=== PATIENT | male | born 1950 | race Caucasian/White ===

== ENCOUNTER 2017-12-09 06:56 | Inpatient (IN) | payer BC, OTHER ==
[2017-12-01 09:05] VITALS: BMI 39.0
--- NOTE | 2017-12-01 09:34 | PAT Medication Instructions ---
Service Date Dec 01, 2017. Current Home Medication List Aspirin (Aspirin Chewable), 81 MG PO QAM Guanvngbnpe-Hydjyxdmach-Hgg C- (Glucosamine Chondroitin), 1 CAP PO QAM Lisinopril (Zestril), 20 MG PO QAM Meloxicam (Mobic), 15 MG PO QAM Metoprolol Succ (Toprol Xl) (Toprol-Xl), 25 MG PO QAM Multiple Vitamins W/ Minerals (Multi For Him 50+), 1 TAB PO QAM Triamterene/Hctz (Dyazide 37.5MG/25MG), 1 TAB PO QAM Medication Instructions For Your Scheduled Surgery - Held per surgeon's instructions: Meloxicam (Mobic), 15 MG PO QAM - Hold the following medications as of 12/01/16: Zshpofkstrg-Abmdxblxedo-Tfa C- (Glucosamine Chondroitin), 1 CAP PO QAM - Hold the following medications the morning of surgery: Lisinopril (Zestril), 20 MG PO QAM Triamterene/Hctz (Dyazide 37.5MG/25MG), 1 TAB PO QAM Multiple Vitamins W/ Minerals (Multi For Him 50+), 1 TAB PO QAM - Take the following medications the morning of surgery with a sip of water OTHERWISE NOTHING TO EAT OR DRINK AFTER MIDNIGHT: Aspirin (Aspirin Chewable), 81 MG PO QAM Metoprolol Succ (Toprol Xl) (Toprol-Xl), 25 MG PO QAM If you have any questions please call us at [phone] or [phone] or [phone]
--- NOTE | 2017-12-01 10:07 | DIAGNOSTIC IMAGING REPORT ---
TWO VIEW CHEST CLINICAL HISTORY: Preoperative examination. FINDINGS: PA and lateral chest radiographs are obtained. No prior studies are available for comparison at the time of dictation. The heart is top normal for projection. The pulmonary vasculature is noncongested. Nonspecific interstitial thickening is noted. There is no airspace consolidation or pleural effusion. There is no pneumothorax. The skeletal structures appear osteopenic. Degenerative change is noted throughout the thoracic spine. IMPRESSION: No active disease in the chest. Electronically signed by: Sloan Oneill M.D. 12/01/2017 10:06 AM Dictated Date/Time: 12/01/2017 10:05 AM
[2017-12-01 10:14] LABS: BASO % 0.5 %; BASO ABS # 0.05 K/uL (0-0.2); EOS % 2.1 %; HEMATOCRIT 46.9 % (42-52); IG# 0.08 K/uL (0.00-0.02); LYMPH % 28.4 %; LYMPH ABS # 2.76 K/uL (1.2-3.4); MEAN CELL VOLUME 86.7 fL (80-100); MEAN CORPUSCULAR HEMOGLOBIN 29.6 pg (25-34); MEAN CORPUSCULAR HGB CONC 34.1 g/dl (32-36); MONO % 8.5 %; MONO ABS # 0.83 K/uL (0.11-0.59); NEUT % 59.7 %; NEUT ABS # 5.79 K/uL (1.4-6.5); PLATELET COUNT 168 K/uL (130-400); RED CELL DISTRIBUTION WIDTH CV 13.1 % (11.5-14.5); RED CELL DISTRIBUTION WIDTH SD 41.5 fL (36.4-46.3); WHITE BLOOD COUNT 9.71 K/uL (4.8-10.8)
[2017-12-01 10:21] LABS: HEMOGLOBIN A1C 5.5 % (4.5-5.6)
[2017-12-01 10:24] LABS: CALCIUM 9.6 mg/dl (8.5-10.1); CREATININE 1.49 mg/dl (0.60-1.40); POTASSIUM 5.1 mmol/L (3.5-5.1)
[2017-12-01 10:26] LABS: PTT PATIENT 26.1 SECONDS (21.0-31.0)
--- NOTE | 2017-12-08 12:20 | HISTORY & PHYSICAL EXAMINATION ---
DATE OF ADMISSION: 12/09/2017 CHIEF COMPLAINT: Right hip pain. HISTORY OF PRESENT ILLNESS: The patient is a 67-year-old male with known osteoarthritis about his right hip. He has pain with prolonged weightbearing and standing activities. He has difficulty kneeling, bending, or squatting activities. He takes meloxicam as well as glucosamine chondroitin daily. Despite this, he continues to have ongoing pain and disability and now desires to proceed with right total hip arthroplasty. PAST MEDICAL HISTORY: Hyperlipidemia, hypertension, and osteoarthritis. PAST SURGICAL HISTORY: Knee arthroscopy and L-spine surgery. MEDICATIONS: Triamterene/HCTZ 37.5/25 once daily, Topral XL 25 mg daily, meloxicam 15 mg daily, aspirin 81 mg daily, glucosamine chondroitin 2 tablets daily, multivitamin daily, and Prinivil 20 mg daily. ALLERGIES: INCLUDE ATORVASTATIN, PRAVASTATIN AND SIMVASTATIN, WHICH CAUSE MUSCLE ACHES. SOCIAL HISTORY AND REVIEW OF SYSTEMS: Noncontributory. PHYSICAL EXAMINATION: GENERAL: Well-nourished and well-developed, obese male, who appears his stated age. HEENT: Normocephalic and atraumatic. Extraocular movements intact. Oropharynx is pink and moist. NECK: Supple without adenopathy. LUNGS: Clear to auscultation bilaterally. HEART: Regular rate and rhythm. ABDOMEN: Soft, nontender, nondistended, and obese. EXTREMITIES: The upper extremities are within normal limits. The right hip demonstrates limited range of motion. There is limitation of active and passive internal/external rotation with pain at end range. X-RAYS: X-rays were reviewed. He has end-stage osteoarthritis about the right hip with complete loss of the joint space. There is [id number]-vr-[id number] arthritis of the superior aspect of the hip joint. ASSESSMENT: Right hip degenerative joint disease. PLAN: Risks versus benefits were discussed. Consent was obtained. The patient's primary care physician is Dr. Norris. We will proceed with right total hip arthroplasty as indicated.
[~2017-12-09] VITALS: Ht 185.4 cm; Wt 135.1 kg
[2017-12-09] VITALS (8 sets, daily range): BP systolic 99–135; BP diastolic 61–84; PULSE 55–77; TEMP 36.4–36.9; O2SAT 92–97; Ht 185.4 cm; Wt 135.1 kg
[2017-12-09] MEDS: TRANEXAMIC ACID INJ 1,000 MG in SYRINGE 0 ML IV SCH ×2 (06:30→09:03)
[~2017-12-09 06:56] MED LIST: ACETAMINOPHEN 500 MG TAB PO SCH; ASPCH81X PO; BUPIVACAINE 0.5 % 5 MG/1 ML PF 10ML VIAL ONE; CEFAZOLIN 3000MG IV PUSH 15 ML IV SCH; CeleBREX 200 MG CAP PO SCH; DEXAMETHASONE 4 MG TAB PO SCH; FAMOTIDINE 20 MG TAB PO SCH; GABAPENTIN 300 MG CAP PO SCH; GLUC1CAP35 PO; LACTATED RINGER'S 1000ML 1,000 ML IV SCH; LACTATED RINGER'S 1000ML 500 ML IV SCH; LACTATED RINGER'S 1000ML IV SCH; LISI-725 PO; MELO7.5T5 PO; METO25TA3 PO; METOCLOPRAMIDE HCL 10 MG TAB PO SCH; MULT-221 PO; ROPIVACAINE 5MG/ML 30 ML 150 MG, BUPIVACAINE 0.5% MPF INJ 30 ML, EpINEphrine HCL INJ 0.... INFIL SCH; TRIA37.5 PO
[2017-12-09] MEDS ORDERED: FENTANYL CITRATE INJ 50 MCG/1 ML 2 ML VIAL ONE (08:05)
[2017-12-09] MEDS ORDERED: MIDAZOLAM HCL 1 MG/ML 2ML VIAL ONE (08:05)
[2017-12-09] MEDS ORDERED: METOPROLOL TARTRATE 1 MG/ML VIAL ONE (08:05)
--- NOTE | 2017-12-09 08:15 | History & Physical Bridge Note ---
H&P Re-Evaluation Bridge Note: I have examined the patient, reviewed the History & Physical and in the interval since the performance of the History & Physical I have noted the following changes of clinical significance: No changes noted
[2017-12-09] MEDS ORDERED: EpHEDrine SULFATE INJ 50 MG/ML AMP IV PRN (08:45)
[2017-12-09] MEDS ORDERED: MEPERIDINE HCL 25 MG/ML CARP IV PRN (08:45)
[2017-12-09] MEDS ORDERED: ATROPINE SULFATE 0.1 MG/ML 5ML SYR IV PRN (08:45)
[2017-12-09] MEDS ORDERED: FENTANYL CITRATE INJ 50 MCG/1 ML 2 ML VIAL IV PRN (08:45)
[2017-12-09] MEDS ORDERED: HYDROmorphone INJ 1 MG/ML SYR IV PRN (08:45)
[2017-12-09] MEDS ORDERED: LABETALOL HCL IV 5 MG/ML 20ML IV PRN (08:45)
[2017-12-09] MEDS ORDERED: ONDANSETRON INJ 2 MG/ML 2 ML VIAL IV PRN ×2 (08:45→11:00)
[2017-12-09] MEDS ORDERED: POVIDONE-IODINE OP SOLN 30 ML BTL ONE (08:49)
[2017-12-09] MEDS ORDERED: BACITRACIN 50000 UNIT VIAL ONE (08:49)
[2017-12-09] MEDS ORDERED: GLYCOPYRROLATE INJ 0.2 MG/ML VIAL ONE (10:11)
[2017-12-09] MEDS ORDERED: EpHEDrine SULFATE 50MG/5ML SYR ONE (10:11)
[2017-12-09] MEDS ORDERED: PROPOFOL IV EMULSION 10 MG/ML 20 ML VIAL IV ONE (10:12)
--- NOTE | 2017-12-09 10:27 | [facility] Post Operative Brief Note ---
Immediate Operative Summary Operative Date Dec 09, 2017. Pre-Operative Diagnosis Right Hip Osteoarthritis Post-Operative Diagnosis Same as preop Procedure(s) Performed Right Total Hip Arthroplasty Uncemented Surgeon Dr. Norman [employer] Worker Surgeon(s) Patric Moreno PA-C Estimated Blood Loss 100 ml Findings severe OA Specimens A. Right Femoral Head Complication(s) None Disposition Recovery Room / PACU
--- NOTE | 2017-12-09 10:39 | OPERATIVE REPORT ---
DATE OF OPERATION: 12/09/2017 PREOPERATIVE DIAGNOSIS: Osteoarthritis right hip. POSTOPERATIVE DIAGNOSIS: Osteoarthritis right hip. PROCEDURE: Right Nancy total hip arthroplasty. SURGEON: Felice Norman MD. POULTRY PROCESS WORKER: Patric Moreno PA-C. ANESTHESIA: Spinal COMPLICATIONS: None. IMPLANTS USED: Acetabular reamer used 58, acetabular shell 58, femoral stem 7, and femoral head +0 mm x 36 ceramic. PROCEDURE: Following induction of adequate spinal anesthesia, the patient was placed in left lateral decubitus position and right [place] incision was made. Subcutaneous tissue was sharply dissected. Electrocautery used for hemostasis. The fascia was incised throughout the length of the wound and a archuleta scissor placed beneath the short external rotators. The pyriformis was tagged with #1 Vicryl. The short external rotators were divided from the posterior aspect of the femur using electrocautery. These were swept posteriorly. A T-capsulotomy incision was made and the hip was dislocated using a combination of flexion, adduction, and internal rotation. Exposure of the femoral neck with old-style Hohmann and a blunt Hohmann was carried out and a femoral rasp was utilized as a guide for making the appropriate level femoral neck cut. This bone fragment was removed and reserved on the back table. Next, attention was turned to the acetabulum where bone hook was used to retract the femur while the offset retractors were placed anterior and posteriorly. A double-angled Hohmann was placed in superior and anterior position exposing the acetabulum nicely. Acetabular labrum as well as posterior capsule elements were removed using a long knife and a long pickup. Fovea centralis was cleared of all soft tissue. Sequential reamings were carried up to a 58 and decision was made to proceed with impaction of a 58 trabecular metal cup. This was impacted and held using a single 35 mm bone screw. The acetabular liner was placed with 15 of elevated posterior wall in the superior and posterior position. Next, attention was turned to the femoral portion of the case where a Bovie and pickup was used to further clear short external rotators from their insertion on the femur. Box osteotome was used to gain access to the femoral canal and the T-handled rasp and a rattail rasp were used to further open and lateral the canal. Sequentially raspings were carried up to a 7 which gave good fit and fill of the proximal femur. A trial reduction was carried out and a 132 degree femoral neck component was chosen as the size to be used. A +0 mm x 36 mm femoral head was impacted into position, +0 head was utilized. The trial reduction was stable in all degrees of rotation with no jjyv-cz-eieb impingement. The hip was dislocated. The trial components were removed and the final femoral stem, neck, and femoral head combination were assembled on the back table and impacted into position. Hip was relocated. Range of motion checked once again successful and the wound was irrigated. The pyriformis repaired to the greater trochanter using #1 Vicryl [id number]-[id number] suture. A Hemovac drain was placed and the fascia was closed using #1 Vicryl, subcutaneous tissue was closed using 0 Dexon, and skin was closed with ivan. Sterile dressing of Adaptic, 4 x 4's, ABDs, and foam tape was applied. The patient tolerated the procedure well and taken to recovery room stable. Due to the complex nature of the procedure, the entire surgery was performed with the operational assistance of Patric Moreno PA-C. The email marketing assistant, under direct supervision, was involved in the actual performance of all aspects of the surgical procedure including hemostasis, tissue retraction and incision, instrument management, patient positioning, and wound closure. I attest to the content of the Intraoperative Record and any orders documented therein. Any exception s are noted below.
[2017-12-09] MEDS ORDERED: TAMSULOSIN HCL 0.4 MG CAP PO PRN (11:00)
[2017-12-09] MEDS ORDERED: ALUMINUM/MAGNESIUM/SIMETH (MAALOX MAX) 30 ML UDC PO PRN (11:00)
[2017-12-09] MEDS ORDERED: MAGNESIUM HYDROXIDE SUSP 30 ML UDC PO PRN (11:00)
[2017-12-09] MEDS ORDERED: ZOLPIDEM TARTRATE 5 MG TAB PO PRN (11:00)
[2017-12-09] MEDS ORDERED: METOCLOPRAMIDE HCL INJ 5 MG/ML 2 ML VIAL IV PRN (11:00)
[2017-12-09] MEDS ORDERED: MoRPHine SULFATE 2 MG/ML CARP IV PRN (11:00)
--- NOTE | 2017-12-09 12:14 | Anesthesiology Progress Note ---
Anesthesia Post Op Note Date & Time Dec 09, 2017 at 12:13 Vital Signs Pain Intensity: 0 Vital Signs Past 12 Hours Date Time Temp Pulse Resp B/P (MAP) Pulse Ox O2 Delivery O2 Flow Rate FiO2 12/09/17 12:07 79 23 95 18 12:07 79 23 95 18 12:07 79 23 18 12:07 79 23 12/09/17 12:06 98/66 12/09/17 12:06 98/66 12/09/17 12:02 73 20 94 18 12:02 72 20 12/09/17 12:02 73 20 94 12/09/17 12:02 72 20 12/09/17 12:01 120/80 12/09/17 12:01 120/80 12/09/17 11:57 73 25 95 12/09/18 11:57 73 25 95 18 11:57 74 25 18 11:57 74 25 18 11:56 104/70 18 11:56 104/70 18 11:52 69 20 12/09/18 11:52 69 20 12/09/18 11:52 69 20 94 18 11:52 69 20 94 18 11:51 102/67 18/18 11:51 102/67 12/09/18 11:47 75 25 97 18/18 11:47 77 25 18/18 11:47 77 25 12/09/18 11:47 75 25 97 12/09/18 11:46 109/68 18/18 11:46 109/68 12/09/18 11:42 70 19 18/18 11:42 71 19 95 18/18 11:42 71 19 95 18/18 11:42 70 19 18/18 11:41 36.8 103/63 18/18 11:37 68 20 18/18 11:37 68 20 95 18/18 11:36 102/64 18/18 11:32 64 17 18/18 11:32 63 17 94 18/18 11:31 106/64 18/18 11:27 67 21 18/18 11:27 67 21 96 12/09/17 11:26 102/63 12/09/17 11:22 68 20 12/09/17 11:22 68 20 96 12/09/17 11:21 99/62 12/09/17 11:17 74 21 95 12/09/17 11:17 74 21 12/09/17 11:16 103/62 12/09/17 11:12 69 21 95 12/09/17 11:12 70 21 12/09/17 11:11 102/64 12/09/17 11:07 70 21 12/09/17 11:07 70 21 95 12/09/17 11:06 102/60 12/09/17 11:02 69 21 95 12/09/17 11:02 69 21 12/09/17 11:01 111/66 12/09/17 10:57 66 23 12/09/17 10:57 66 23 96 12/09/17 10:56 120/76 12/09/17 10:56 90/59 12/09/17 10:54 86/62 12/09/17 10:52 74 21 12/09/17 10:52 74 21 97 12/09/17 10:51 91/54 12/09/17 10:47 36.2 74 16 91/54 97 Nasal Cannula 3 12/09/17 07:55 36.7 55 20 135/84 96 Room Air Notes Mental Status: alert / awake / arousable, participated in evaluation Pt Amnestic to Procedure: Yes Nausea / Vomiting: adequately controlled Pain: adequately controlled Airway Patency, RR, SpO2: stable & adequate BP & HR: stable & adequate Hydration State: stable & adequate Neuraxial Anesthesia: was administered, sensory block is resolving Anesthetic Complications: no major complications apparent
[2017-12-09] MEDS ORDERED: MoRPHine SULFATE 10 MG/ML CARP/VIAL IV PRN (12:45)
[2017-12-09] MEDS ORDERED: MoRPHine SULFATE 4 MG/ML 1 ML CARP\\VIAL IV PRN (12:45)
--- NOTE | 2017-12-09 12:56 | DIAGNOSTIC IMAGING REPORT ---
R PELVIS/UNILATERAL HIP 1 VIEW HISTORY: 67 years-old Male IN PACU - A/P PELVIS and LATERAL HIP INCLUDING ALL OF IMPLANT status post right hip total joint arthroplasty. Degenerative joint disease. COMPARISON: None available TECHNIQUE: Portable AP view of the pelvis with crosstable lateral views of the right hip FINDINGS: Postoperative changes from recent right hip total joint arthroplasty. No periprosthetic fracture or retained foreign body. Alignment appears satisfactory. Expected postsurgical soft tissue swelling and deep tissue air with surgical drain in place. Moderate degenerative changes of the left hip. No pelvic ring fracture identified. IMPRESSION: Right hip arthroplasty with satisfactory alignment. The above report was generated using voice recognition software. It may contain grammatical, syntax or spelling errors. Electronically signed by: Carlos Gómez M.D. 12/09/2017 12:54 PM Dictated Date/Time: 12/09/2017 12:53 PM
[2017-12-09] MEDS: D5W AND 1/2NSS + 20MEQ KCL 1,000 ML IV SCH (15:08)
[2017-12-09] MEDS: OXYCODONE HCL IR 5 MG TAB (IMMEDIATE RELEASE) PO PRN (15:12)
[2017-12-09] MEDS: ACETAMINOPHEN 500 MG TAB PO SCH ×2 (15:14→21:28)
[2017-12-09] MEDS: KETOROLAC TROMETHAMINE 15 MG/ML VIAL IV. SCH ×2 (16:28→21:29)
[2017-12-09] MEDS: FERROUS GLUCONATE 324 MG TAB PO SCH (18:19)
[2017-12-09] MEDS: CEFAZOLIN IV 3,000 MG in SYRINGE 0 ML IV SCH (18:19)
[2017-12-09] MEDS: DOCUSATE SODIUM 100 MG CAP PO SCH (21:28)
[2017-12-09] MEDS: ASPIRIN 81 MG ECTAB PO SCH (21:28)
[2017-12-10] MEDS: CEFAZOLIN IV 3,000 MG in SYRINGE 0 ML IV SCH (01:14)
[2017-12-10] MEDS: D5W AND 1/2NSS + 20MEQ KCL 1,000 ML IV SCH ×2 (01:15→11:12)
[2017-12-10 03:43] VITALS: BP 126/66; PULSE 55; TEMP 36.6; O2SAT 96
[2017-12-10] MEDS: KETOROLAC TROMETHAMINE 15 MG/ML VIAL IV. SCH (04:02)
[2017-12-10] MEDS: ACETAMINOPHEN 500 MG TAB PO SCH ×3 (05:34→21:02)
[2017-12-10 05:43] LABS: BASO % 0.1 %; BASO ABS # 0.01 K/uL (0-0.2); HEMATOCRIT 38.5 % (42-52); HEMOGLOBIN 13.2 g/dL (14.0-18.0); IG# 0.06 K/uL (0.00-0.02); LYMPH % 8.3 %; LYMPH ABS # 1.27 K/uL (1.2-3.4); MEAN CELL VOLUME 85.9 fL (80-100); MEAN CORPUSCULAR HEMOGLOBIN 29.5 pg (25-34); MEAN CORPUSCULAR HGB CONC 34.3 g/dl (32-36); MEAN PLATELET VOLUME 9.6 fL (7.4-10.4); MONO % 5.6 %; MONO ABS # 0.86 K/uL (0.11-0.59); NEUT % 85.6 %; NEUT ABS # 13.19 K/uL (1.4-6.5); PLATELET COUNT 138 K/uL (130-400); RED CELL DISTRIBUTION WIDTH CV 13.2 % (11.5-14.5); RED CELL DISTRIBUTION WIDTH SD 41.6 fL (36.4-46.3); WHITE BLOOD COUNT 15.39 K/uL (4.8-10.8)
[2017-12-10 06:20] LABS: CALCIUM 8.3 mg/dl (8.5-10.1); CREATININE 2.08 mg/dl (0.60-1.40); POTASSIUM 4.9 mmol/L (3.5-5.1)
[2017-12-10 07:05] VITALS: BP 123/77; PULSE 59; TEMP 36.4; O2SAT 95
[2017-12-10] MEDS ORDERED: DEXAMETHASONE INJ 10 MG in SYRINGE 0 ML IV SCH (07:30)
--- NOTE | 2017-12-10 07:59 | Anesthesiology Progress Note ---
Anesthesia Post Op Note Date & Time Dec 10, 2017 at 07:58 Vital Signs Pain Intensity: 0.0 Vital Signs Past 12 Hours Date Time Temp Pulse Resp B/P (MAP) Pulse Ox O2 Delivery O2 Flow Rate FiO2 12/10/17 07:05 36.4 59 17 123/77 (92) 95 Room Air 12/10/17 03:43 36.6 55 16 126/66 (86) 96 Room Air 12/09/17 23:28 36.4 62 16 115/63 (80) 92 Room Air Notes Mental Status: alert / awake / arousable, participated in evaluation Pt Amnestic to Procedure: Yes Nausea / Vomiting: adequately controlled Pain: adequately controlled Airway Patency, RR, SpO2: stable & adequate BP & HR: stable & adequate Hydration State: stable & adequate Neuraxial Anesthesia: sensory block resolved Anesthetic Complications: no major complications apparent
--- NOTE | 2017-12-10 08:43 | Orthopedic Progress Note ---
Orthopedic Progress Note Date of Service Dec 10, 2017. Subjective Post OP Day: 1 Reports: feeling well Objective N/V intact, dressing C/D/I (Hemovac in place), toes mobile Date Time Temp Pulse Resp B/P (MAP) Pulse Ox O2 Delivery O2 Flow Rate FiO2 12/10/17 07:05 36.4 59 17 123/77 (92) 95 Room Air 12/10/17 03:43 36.6 55 16 126/66 (86) 96 Room Air 12/09/17 23:28 36.4 62 16 115/63 (80) 92 Room Air 12/09/17 19:35 Room Air 12/09/17 19:01 36.5 70 18 107/68 (81) 94 Room Air 12/09/17 16:45 36.4 69 17 100/61 (74) 94 Room Air 12/09/17 15:45 36.5 77 19 99/62 (74) 95 Room Air 12/09/17 14:45 36.6 70 18 100/63 (75) 94 Nasal Cannula 12/09/17 14:04 69 18 113/68 (83) 95 Room Air 12/09/17 13:35 36.9 68 18 107/67 (80) 97 Room Air 12/09/17 13:35 97 Room Air 12/09/17 13:35 Room Air 12/09/17 13:26 111/66 12/09/17 13:23 70 18 12/09/17 13:23 70 18 94 12/09/17 13:21 117/63 12/09/17 13:18 71 20 12/09/17 13:18 71 20 94 12/09/17 13:16 112/68 12/09/17 13:13 68 23 18 13:13 67 23 93 12/09/17 13:11 110/59 12/09/17 13:08 66 19 90 12/09/17 13:08 65 19 12/09/17 13:06 105/61 12/09/17 13:03 65 21 93 18 13:03 66 21 12/09/17 13:01 107/59 18 12:58 68 24 93 12/09/17 12:58 69 24 12/09/17 12:56 112/65 12/09/17 12:53 67 19 92 1/18/18 12:53 67 19 1/18/18 12:51 105/61 1/18/18 12:48 71 40 92 1/18/18 12:48 72 40 1/18/18 12:46 112/63 1/18/18 12:43 69 22 93 1/18/18 12:43 69 22 1/18/18 12:42 112/61 1/18/18 12:38 71 21 1/18/18 12:38 71 21 92 1/18/18 12:36 102/60 1/18/18 12:33 67 21 93 1/18/18 12:33 67 21 1/18/18 12:31 105/65 1/18/18 12:28 71 17 107/61 93 1/18/18 12:28 71 17 1/18/18 12:26 85/57 1/18/18 12:23 68 22 93 1/18/18 12:23 67 22 1/18/18 12:21 112/57 1/18/18 12:18 69 22 1/18/18 12:18 68 22 92 1/18/18 12:16 107/63 1/18/18 12:13 71 23 1/18/18 12:13 71 23 92 1/18/18 12:11 114/71 1/18/18 12:08 72 20 1/18/18 12:08 72 20 92 1/18/18 12:07 79 23 95 1/18/18 12:07 79 23 95 1/18/18 12:07 79 23 1/18/18 12:07 79 23 1/18/18 12:06 98/66 1/18/18 12:06 98/66 1/18/18 12:02 73 20 94 1/18/18 12:02 72 20 1/18/18 12:02 73 20 94 1/18/18 12:02 72 20 1/18/18 12:01 120/80 1/18/18 12:01 120/80 1/18/18 11:57 73 25 95 1/18/18 11:57 73 25 95 1/18/18 11:57 74 25 1/18/18 11:57 74 25 1/18/18 11:56 104/70 1/18/18 11:56 104/70 1/18/18 11:52 69 20 1/18/18 11:52 69 20 1/18/18 11:52 69 20 94 1/18/18 11:52 69 20 94 1/18/18 11:51 102/67 1/18/18 11:51 102/67 1/18/18 11:47 75 25 97 1/18/18 11:47 77 25 1/18/18 11:47 77 25 1/18/18 11:47 75 25 97 1/18/18 11:46 109/68 1/18/18 11:46 109/68 1/18/18 11:42 70 19 1/18/18 11:42 71 19 95 1/18/18 11:42 71 19 95 1/18/18 11:42 70 19 1/18/18 11:41 36.8 103/63 1/18/18 11:37 68 20 1/18/18 11:37 68 20 95 1/18/18 11:36 102/64 1/18/18 11:32 64 17 1/18/18 11:32 63 17 94 1/18/18 11:31 106/64 1/18/18 11:27 67 21 1/18/18 11:27 67 21 96 1/18/18 11:26 102/63 1/18/18 11:22 68 20 1/18/18 11:22 68 20 96 1/18/18 11:21 99/62 1/18/18 11:17 74 21 95 1/18/18 11:17 74 21 1/18/18 11:16 103/62 1/18/18 11:12 69 21 95 1/18/18 11:12 70 21 1/18/18 11:11 102/64 1/18/18 11:07 70 21 1/18/18 11:07 70 21 95 1/18/18 11:06 102/60 1/18/18 11:02 69 21 95 1/18/18 11:02 69 21 1/18/18 11:01 111/66 1/18/18 10:57 66 23 1/18/18 10:57 66 23 96 1/18/18 10:56 120/76 1/18/18 10:56 90/59 1/18/18 10:54 86/62 1/18/18 10:52 74 21 12/09/17 10:52 74 21 97 12/09/17 10:51 91/54 12/09/17 10:47 36.2 74 16 91/54 97 Nasal Cannula 3 Laboratory Results 24 Hours: Test 12/10/17 05:23 White Blood Count 15.39 K/uL Red Blood Count 4.48 M/uL Hemoglobin 13.2 g/dL Hematocrit 38.5 % Mean Corpuscular Volume 85.9 fL Mean Corpuscular Hemoglobin 29.5 pg Mean Corpuscular Hemoglobin Concent 34.3 g/dl Platelet Count 138 K/uL Mean Platelet Volume 9.6 fL Neutrophils (%) (Auto) 85.6 % Lymphocytes (%) (Auto) 8.3 % Monocytes (%) (Auto) 5.6 % Eosinophils (%) (Auto) 0.0 % Basophils (%) (Auto) 0.1 % Neutrophils # (Auto) 13.19 K/uL Lymphocytes # (Auto) 1.27 K/uL Monocytes # (Auto) 0.86 K/uL Eosinophils # (Auto) 0.00 K/uL Basophils # (Auto) 0.01 K/uL Assessment & Plan Assessment: 67 yo male stable POD #1 s/p right ALEX Plan: 1. Med management 2. DVT prophylaxis- ASA, SCDs 3. PT/OT 4. D/C planning- home w/ HH
--- NOTE | 2017-12-10 08:58 | Clinical Documentation Query ---
GINA Epps : CLINICAL DOCUMENTATION QUERY Patient is a 67 year old male who underwent elective right uncemented ALEX on 12/09. Admission BUN, creatinine, and estimated GFR were 44 mg/dl, 1.49 mg/dl, and 55 ml/min. POD #1, values are 45 mg/dl, 2.08 mg/dl, and 32 ml/min. Neither abnormality addressed/documented in the medical record. He is recieving IVF and being monitored by serial chemistries. Risk factors include age, hypertension, and surgery. Please clarify as clinically appropriate. Thank you. In your clinical opinion is this patient being managed for: ( ) Acute kidney failure on CKD stage 3 ( X) Not Agree ( ) Other explanation of clinical findings (Please Explain) ( ) Unable to determine (Please Define) ( ) Need to Discuss The medical record reflects the following clinical findings, treatment, and risk factors. Clinical Indicators: As above Treatment:He is recieving IVF and being monitored by serial chemistries Risk Factors: Age, hypertension, and surgery Please clarify and document your clinical opinion in the progress notes and discharge summary. Terms such as "probable", "suspected", "likely", "questionable", "possible", or "still to be ruled out" are acceptable. IF IN AGREEMENT, YOU MUST DOCUMENT ABOVE DIAGNOSTIC STATEMENT IN DAILY PROGRESS NOTES AND DISCHARGE SUMMARY. This document is not part of the patient's record. Thank You, Alexis Meraz, TOMMY [phone]
[2017-12-10] MEDS: MULTIVITAMIN TAB PO SCH (09:03)
[2017-12-10] MEDS: METOPROLOL SUCC 25MG EXT REL TAB PO SCH (09:03)
[2017-12-10] MEDS: TRIAMTERENE/HCTZ 37.5/25MG CAP PO SCH (09:05)
[2017-12-10] MEDS: LISINOPRIL 20 MG TAB PO SCH (09:05)
[2017-12-10] MEDS: FERROUS GLUCONATE 324 MG TAB PO SCH ×3 (09:05→17:45)
[2017-12-10] MEDS: ASPIRIN 81 MG ECTAB PO SCH ×2 (09:05→22:18)
[2017-12-10] MEDS: PANTOprazole SOD 40 MG TAB PO SCH (09:06)
[2017-12-10] MEDS: DOCUSATE SODIUM 100 MG CAP PO SCH ×2 (09:06→20:59)
[2017-12-10] MEDS: OXYCODONE HCL IR 5 MG TAB (IMMEDIATE RELEASE) PO PRN (12:26)
--- NOTE | 2017-12-10 15:29 | Discharge Instructions ---
Discharge Instructions Date of Service Dec 10, 2017. Admission Reason for Admission: Right Hip Osteoarthritis Discharge Discharge Diagnosis / Problem: Right hip arthritis Discharge Goals Goal(s): Decrease discomfort, Improve function Activity Recommendations Activity Limitations: as noted below Weightbearing Status: Right weightbearing (as tolerated) . Instructions / Follow-Up Instructions / Follow-Up ACTIVITY RECOMMENDATIONS: SELF CARE INSTRUCTIONS AFTER TOTAL HIP REPLACEMENT Until the incision and soft tissues around your hip have healed, there is a possibility that the hip prosthesis could dislocate. A. Observe the following precautions to prevent dislocation: 1. Don't bend your hip greater than 90 degrees. 2. Avoid crossing your legs or ankles while standing or lying. 3. Sit with your feet placed 6 inches apart. 4. When sitting, keep your knees below your hips. Sit on a firm surface, avoid deep, soft chairs and couches. Use an elevated toilet seat in the bathroom. 5. Don't bend over at the waist. Use a long handled shoehorn and a sock aid to help you put on your shoes and socks. A leather drier can help you steel pickler objects that are too high or too low to reach. 6. Keep car riding to a minimum for at least one month after surgery. B. Your balance may be shaky for a while. Use crutches or a walker until directed by your doctor. C. Use hand rails when walking on stairs. D. Wear low heeled shoes with non-slip soles. E. Be sure that your floors are free of things that could trip you - throw rugs , electrical cords, small objects. Avoid wet and waxed floors, especially with crutches and canes. F. Try to walk several times a day with rest periods between. G. Continue with all the exercises taught to you in the hospital. Again, make walking a part of your daily routine. SPECIAL CARE INSTRUCTIONS: VERY IMPORTANT TO READ AND REVIEW A. You may still be at risk for phlebitis and blood clots. 1. Wear surgical stockings (GRAHAM hose) for 2 weeks after surgery to improve circulation and reduce swelling. 2. Take Aspirin 81mg twice daily for 4 weeks or as directed by your doctor. This is your blood thinner. 3. High risk patients may be prescribed a stronger blood thinner if necessary. 4. If you are on Coumadin normally, your family doctor/milker machine should monitor your blood work. Expect a phone call the day of or the day after bloodwork is drawn to adjust your dosage. B. You must take antibiotics before having dental work, bladder, bowel and other surgery. Your doctor will provide you with a permanent card to carry describing precautions. C. Call [facility] if you have a fever, redness or swelling around the incision, cloudy drainage from incision, or sudden increase in pain in your hip, not relieved by your regular pain medication. D. Please call the office at if you have any concerns or questions about your operation or recovery. * YOU MAY SHOWER, NO TUB BATHS UNTIL CLEARED BY YOUR DOCTOR. * WEAR GRAHAM HOSE 20 HOURS PER DAY FOR 2 WEEKS. * YOU SHOULD USE A WALKER OR CRUTCHES FOR 2-4 WEEKS. THIS WILL HELP PREVENT STRAIN ON YOUR HIP MUSCLE AND ALLOW IT TO HEAL PROPERLY. YOU MAY WEAN TO A CANE TOLERATED. * MOST PATIENTS WILL HAVE HOME NURSING FOR THERAPY. IF YOU DECIDE TO DO OUTPATIENT PHYSICAL THERAPY, PLEASE SCHEDULE THIS 3 TIMES PER WEEK. Silverlon- This is a large adhesive bandage that contains silver ions. This helps your incision heal by fighting off bacteria and protecting it from the outside environment. You are permitted to shower with this dressing. This will remain on your incision for 7 days and then should be removed. Some visible blood or drainage through the dressing window is normal. If there is significant drainage or leaking noted before the 7 days notify your doctor's office immediately. Once removed, keep incision clean and dry. If there is any drainage or redness noted, please call your surgeon. Maintain Zipline closure when removing Silverlon until follow-up with MD. FOLLOW UP VISIT: If appointment is not already scheduled: Please call [facility] to make a follow-up appointment for 2 weeks after your surgery at . Current Hospital Diet Patient's current hospital diet: Regular Diet Discharge Diet Recommended Diet: Regular Diet Procedures Procedures Performed: Right Total Hip Arthroplasty Uncemented Pending Studies Studies pending at discharge: no Laboratory Results Hemoglobin A1c Test 12/01/17 09:04 Range/Units Estimated Average Glucose 111 mg/dl Hemoglobin A1c 5.5 4.5-5.6 % Medical Emergencies . Who to Call and When: Medical Emergencies: If at any time you feel your situation is an emergency, please call 911 immediately. . Non-Emergent Contact Non-Emergency issues call your: Surgeon Call Non-Emergent contact if: temperature is above 101.5, your pain is not controlled, wound has increased drainage, wound has increased redness . "Provider Documentation" section prepared by Patric Moreno PA-C. . VTE Core Measure Inpt VTE Proph given/why not?: Other Anticoagulation (ASA), T.E.D. Stockings, SCD's [place] Drug Monitoring Program Search Results: patient reviewed within database, no issues identified
[2017-12-10 15:47] VITALS: BP 156/70; PULSE 56; TEMP 36.4; O2SAT 95
[2017-12-10] MEDS: CeleBREX 200 MG CAP PO SCH (21:00)
[2017-12-10 23:00] VITALS: BP 128/72; PULSE 55; TEMP 36.4; O2SAT 96
[2017-12-11] MEDS: ACETAMINOPHEN 500 MG TAB PO SCH (05:44)
[2017-12-11 06:37] VITALS: BP 132/84; PULSE 50; TEMP 36.7; O2SAT 97
--- NOTE | 2017-12-11 08:03 | Orthopedic Progress Note ---
Orthopedic Progress Note Date of Service Dec 11, 2017. Subjective Post OP Day: 2 Reports: feeling well Objective calves soft nontender, N/V intact, dressing C/D/I, toes mobile Date Time Temp Pulse Resp B/P (MAP) Pulse Ox O2 Delivery O2 Flow Rate FiO2 12/11/17 07:05 Room Air 12/11/17 06:37 36.7 50 16 132/84 (100) 97 Room Air 12/10/17 23:00 36.4 55 16 128/72 (90) 96 Room Air 12/10/17 19:40 Room Air 12/10/17 15:47 36.4 56 19 156/70 (98) 95 Room Air Assessment & Plan Assessment: 67 yo male stable POD #2 s/p right ALEX Plan: 1. Med management 2. DVT prophylaxis- ASA, SCDs 3. PT/OT 4. D/C planning- home w/ HH Attending Addendum I have seen and examined the patient, and agree with GILL Moreno's assessment and plan. Jer Escobar MD Orthopedic Surgery
[2017-12-11] MEDS ORDERED: ACET-24 PO (08:05)
[2017-12-11] MEDS ORDERED: ONDA8TAB12 PO (08:05)
[2017-12-11] MEDS ORDERED: CLB200 PO (08:05)
[2017-12-11] MEDS ORDERED: RXC5 PO (08:05)
[2017-12-11] MEDS ORDERED: ASPEC81 PO (08:05)
[2017-12-11] MEDS: CeleBREX 200 MG CAP PO SCH (10:06)
[2017-12-11] MEDS: ASPIRIN 81 MG ECTAB PO SCH (10:06)
[2017-12-11] MEDS: TRIAMTERENE/HCTZ 37.5/25MG CAP PO SCH (10:06)
[2017-12-11] MEDS: PANTOprazole SOD 40 MG TAB PO SCH (10:07)
[2017-12-11] MEDS: FERROUS GLUCONATE 324 MG TAB PO SCH (10:55)
[2017-12-11] MEDS: LISINOPRIL 20 MG TAB PO SCH (10:55)
[2017-12-11] MEDS: MULTIVITAMIN TAB PO SCH (10:56)
[2017-12-11] MEDS: DOCUSATE SODIUM 100 MG CAP PO SCH (10:56)
[2017-12-11] MEDS: METOPROLOL SUCC 25MG EXT REL TAB PO SCH (10:56)
[2017-12-11 11:01] VITALS: BP 132/84; PULSE 50; TEMP 36.7; O2SAT 97
== END 2017-12-11 11:15 | disposition home health service (06) | DRG 470 ==
LOC: C.ACU 06:56 → C.3E 08:45 → ENRESERV 13:16
PROC: 0SR903A Replacement of Right Hip Joint with Ceramic Synthetic Substitute, Uncemented, Open Approach (ICD-10-PCS; principal; 2017-12-09 09:30)
DX: M16.11 Unilateral primary osteoarthritis, right hip (principal); E78.5 Hyperlipidemia, unspecified; I10 Essential (primary) hypertension; Z79.82 Long term (current) use of aspirin; Z79.899 Other long term (current) drug therapy